=== PATIENT | female | born 1955 | race Caucasian/White ===

== ENCOUNTER 2021-12-17 09:24 | Emergency (ER) | payer MEDICARE, OTHER | END 2021-12-17 12:09 | disposition home or self-care (01) | LOC: ERS 09:24 | DX: B34.9 Viral infection, unspecified (principal); H66.93 Otitis media, unspecified, bilateral | CPT/HCPCS: 99283 ==

== ENCOUNTER 2023-07-05 08:32 | Outpatient (CLI) | payer MEDICARE ==
[2023-07-05] MEDS ORDERED: Barium Sulfate 96% 176 GM BOT (xray ONLY) ONE (08:58)
[2023-07-05] MEDS ORDERED: E-Z-HD 98% W/W 340GM BOT (x-ray ONLY) ONE (08:58)
== END 2023-07-05 08:33 | disposition home or self-care (01) ==
LOC: RAD 08:32
PROVIDERS: ATTEND Physician Assistant Medical
DX: K21.9 Gastro-esophageal reflux disease without esophagitis (principal); R10.11 Right upper quadrant pain; K14.6 Glossodynia
CPT/HCPCS: 74246